=== PATIENT | male | born 1950 | race Two or more races ===

== ENCOUNTER 2016-10-01 14:01 | Inpatient (IN) | payer MEDICAID ==
[~2016-10-01] VITALS: Ht 170.2 cm; Wt 68.5 kg
[2016-10-01 14:41] LABS: HEMATOCRIT. 32.1 % (42.0-52.0); HEMOGLOBIN. 10.4 g/dL (14.0-18.0); MEAN CORPUSCULAR HEMOGLOBIN 27.4 pg (28.0-32.0); MEAN CORPUSCULAR HGB CONC 32.3 g/dL (31.0-37.0); MEAN CORPUSCULAR VOLUME 84.8 fL (80.0-94.0); PLATELET 309 x1000/uL (130-400); RED BLOOD CELL COUNT 3.79 mill/uL (4.7-6.1); RED CELL DISTRIBUTION WIDTH 14.8 % (11.6-14.6); WHITE BLOOD COUNT 17.9 x1000/uL (4.5-11.0)
[2016-10-01 14:42] LABS: DIFFERENTIAL COMMENT 1
[2016-10-01 14:46] LABS: INR 1.1; PROTHROMBIN TIME 11.4 sec
[2016-10-01 14:53] LABS: ALANINE AMINOTRANSFERASE 14 IU/L (13-61); ALBUMIN 2.7 g/dL (3.4-5.0); ANION GAP 12; CALCIUM 9.7 mg/dL (8.5-10.1); CARBON DIOXIDE 29 mEq/L (21-32); CHLORIDE 102 mEq/L (98-107); INDEX HEMOLYSI 1 (1-3); INDEX ICTERIC 1 (1-4); INDEX LIPEMIC 1 (1-3); NT PRO B-TYPE NATRIURETIC PEP 547 pg/mL (5-125); TROPONIN I < 0.02 ng/mL (0.00-0.04); UREA NITROGEN BLOOD 33 mg/dL (7-21); eGFR 56 mL/min (>60)
[2016-10-01 15:57] LABS: ANISOCYTOSIS 1+; PLATELET ESTIMATE NORMAL
[2016-10-01] MEDS ORDERED: PANTOPRAZOLE SODIUM 40 MG/VIAL IV ONE (16:00)
[2016-10-02] MEDS ORDERED: DEXT 5%/0.45% NACL 1000ML 1,000 ML IV SCH (13:17)
[2016-10-02] MEDS ORDERED: CLONIDINE 0.1MG TABLET PO PRN (13:30)
[2016-10-02] MEDS ORDERED: ACETAMINOPHEN 325MG TABLET PO PRN (13:30)
[2016-10-02] MEDS ORDERED: ONDANSETRON HCL 4MG/2ML VIAL IV PRN (13:30)
[2016-10-02] MEDS: PANTOPRAZOLE SODIUM 40 MG/VIAL IV SCH (15:57)
[2016-10-02 17:52] VITALS: BP 120/78
[2016-10-02 18:03] VITALS: BP 120/78
[2016-10-02] MEDS ORDERED: CLON0.1T PEG (18:38)
[2016-10-02] MEDS ORDERED: PROT40 PEG (18:38)
[2016-10-02] MEDS ORDERED: LOV40 SQ (18:38)
[2016-10-02] MEDS ORDERED: ACETAMINOPHEN 650MG SUPP PR PRN (19:00)
[2016-10-02 20:00] VITALS: BP_SYST 128; BP_SYST 149; BP_DIAS 123; BP_DIAS 82
[2016-10-02] MEDS: LORAZEPAM 2MG/ML CPJ IV PRN (21:42)
[2016-10-02 22:00] VITALS: BP 111/67
[2016-10-03] VITALS (11 sets, daily range): BP systolic 93–141; BP diastolic 36–79
[2016-10-03 07:22] LABS: BASOPHILS % 0.3 % (0.0-2.0); EOSINOPHILS % 0.1 % (0.0-5.0); HEMATOCRIT. 28.9 % (42.0-52.0); HEMOGLOBIN. 9.6 g/dL (14.0-18.0); LYMPHOCYTES % 11.4 % (20.0-50.0); MEAN CORPUSCULAR HEMOGLOBIN 28.1 pg (28.0-32.0); MEAN CORPUSCULAR HGB CONC 33.1 g/dL (31.0-37.0); MEAN CORPUSCULAR VOLUME 84.7 fL (80.0-94.0); MEAN PLATELET VOLUME 9.2 fl (7.4-10.4); MONOCYTES % 6.8 % (2.0-8.0); NEUTROPHILS % 81.4 % (40.0-76.0); PLATELET 261 x1000/uL (130-400); RED BLOOD CELL COUNT 3.41 mill/uL (4.7-6.1); RED CELL DISTRIBUTION WIDTH 14.6 % (11.6-14.6); WHITE BLOOD COUNT 10.4 x1000/uL (4.5-11.0)
[2016-10-03 07:40] LABS: ALANINE AMINOTRANSFERASE 13 IU/L (13-61); ALBUMIN 2.4 g/dL (3.4-5.0); ANION GAP 13; CALCIUM 9.2 mg/dL (8.5-10.1); CARBON DIOXIDE 27 mEq/L (21-32); CHLORIDE 107 mEq/L (98-107); INDEX HEMOLYSI 4 (1-3); INDEX ICTERIC 1 (1-4); INDEX LIPEMIC 1 (1-3); UREA NITROGEN BLOOD 28 mg/dL (7-21); eGFR 52 mL/min (>60)
[2016-10-03] MEDS: PANTOPRAZOLE SODIUM 40 MG/VIAL IV SCH (08:02)
[2016-10-03] MEDS ORDERED: CHLORPROMAZINE HCL 25MG/1ML AMP IM SCH (10:00)
[2016-10-03] MEDS ORDERED: SODIUM CHLORIDE 0.45% 1,000 ML IV SCH (18:15)
[2016-10-03] MEDS: LORAZEPAM 2MG/ML CPJ IV PRN (18:51)
[2016-10-04] VITALS (17 sets, daily range): BP systolic 95–133; BP diastolic 54–92
[2016-10-04 06:36] LABS: BASOPHILS % 0.6 % (0.0-2.0); EOSINOPHILS % 1.4 % (0.0-5.0); HEMATOCRIT. 28.7 % (42.0-52.0); HEMOGLOBIN. 9.4 g/dL (14.0-18.0); LYMPHOCYTES % 27.1 % (20.0-50.0); MEAN CORPUSCULAR HGB CONC 32.7 g/dL (31.0-37.0); MEAN CORPUSCULAR VOLUME 85.7 fL (80.0-94.0); MEAN PLATELET VOLUME 8.7 fl (7.4-10.4); MONOCYTES % 12.4 % (2.0-8.0); NEUTROPHILS % 58.5 % (40.0-76.0); PLATELET 250 x1000/uL (130-400); RED BLOOD CELL COUNT 3.36 mill/uL (4.7-6.1); RED CELL DISTRIBUTION WIDTH 14.5 % (11.6-14.6)
[2016-10-04 07:05] LABS: ALANINE AMINOTRANSFERASE 15 IU/L (13-61); ALBUMIN 2.4 g/dL (3.4-5.0); ANION GAP 11; CARBON DIOXIDE 27 mEq/L (21-32); CHLORIDE 108 mEq/L (98-107); INDEX HEMOLYSI 1 (1-3); INDEX ICTERIC 1 (1-4); INDEX LIPEMIC 1 (1-3); UREA NITROGEN BLOOD 24 mg/dL (7-21); eGFR 49 mL/min (>60)
[2016-10-04] MEDS: PANTOPRAZOLE SODIUM 40 MG/VIAL IV SCH (08:29)
[2016-10-05] VITALS (8 sets, daily range): BP systolic 107–120; BP diastolic 31–75
[2016-10-05] MEDS: PANTOPRAZOLE SODIUM 40 MG/VIAL IV SCH (09:23)
[2016-11-05] MEDS ORDERED: VITAMIN C PEG (09:58)
[2016-11-05] MEDS ORDERED: METO-293 PEG (09:58)
[2016-11-05] MEDS ORDERED: ONDA4TAB5 PO (09:58)
[2016-11-05] MEDS ORDERED: ACET-2178 PEG (09:58)
[2016-11-05] MEDS ORDERED: HYDR-523 PO (09:58)
[2016-11-05] MEDS ORDERED: MULTIVIT W/MINERALS PEG (09:58)
== END 2016-10-05 10:20 | DRG 253 ==
LOC: ER 14:12 → OBSVTOIN 10-02 15:58 → 5EST 10-02 15:58 → INTOOBSV 10-02 15:58
PROVIDERS: ADMIT Internal Medicine; ATTEND Internal Medicine
PROC: 02HV33Z Insertion of Infusion Device into Superior Vena Cava, Percutaneous Approach (ICD-10-PCS; principal; 2016-10-02)
PROC: B548ZZA Ultrasonography of Superior Vena Cava, Guidance (ICD-10-PCS; 2016-10-02)
DX: K92.2 Gastrointestinal hemorrhage, unspecified (principal); N17.9 Acute kidney failure, unspecified; G93.40 Encephalopathy, unspecified; Z99.11 Dependence on respirator [ventilator] status; G82.20 Paraplegia, unspecified; E11.9 Type 2 diabetes mellitus without complications; I10 Essential (primary) hypertension; D64.9 Anemia, unspecified; Z93.2 Ileostomy status; Z93.3 Colostomy status
CPT/HCPCS: 36415; 36569; 70450; 71010; 74176; 76937; 80053; 82270; 82962; 83880; 84484; 85025; 85610; 93005; 93970; 94002; 94003; 94640; 96374; 96375; 96376; 99285; A6261; C1725; C9113; G0378; J2060; J3230

== ENCOUNTER 2018-01-09 06:07 | Inpatient (IN) | payer MEDICAID, MEDICARE ==
[~2018-01-09] VITALS: Ht 172.7 cm; Wt 66.3 kg
[~2018-01-09 06:07] MED LIST: ACET-2178 PEG; CLON0.1T PEG; METO-293 PO; ONDA4TAB5 PO; POTA10TA15 PEG; SUCR1ORA PO; [UNRECOGNIZED DRUG - OTHER] PEG
[2018-01-09] MEDS ORDERED: SODIUM CHLORIDE 0.9% 1,000 ML IV ONE (06:18)
[2018-01-09] MEDS ORDERED: PANTOPRAZOLE 80 MG in SODIUM CHLORIDE 0.9% 100 ML IV STA (06:18)
[2018-01-09 07:23] LABS: HEMATOCRIT. 38.9 % (42.0-52.0); HEMOGLOBIN. 12.5 g/dL (14.0-18.0); MEAN CORPUSCULAR HEMOGLOBIN 25.1 pg (28.0-32.0); MEAN PLATELET VOLUME 8.4 fl (7.4-10.4); PLATELET 247 x1000/uL (130-400); RED BLOOD CELL COUNT 4.98 mill/uL (4.7-6.1)
[2018-01-09 07:28] LABS: CHLORIDE 104 mEq/L (98-107)
[2018-01-09 07:30] LABS: INR 1.1; PROTHROMBIN TIME 11.5 sec (9.4-11.6)
[2018-01-09 07:53] LABS: PLATELET ESTIMATE NORMAL
[2018-01-09 11:50] VITALS: BP 118/77
[2018-01-09] MEDS ORDERED: IPRATROPIUM/ALBUTEROL 0.5-3(2.5)MG/3ML NEB INH PRN (12:30)
[2018-01-09] MEDS ORDERED: LORAZEPAM 2MG/ML CPJ IV PRN (12:30)
[2018-01-09] MEDS ORDERED: ONDANSETRON HCL 4MG/2ML VIAL IV PRN (12:30)
[2018-01-09 13:35] LABS: HEMATOCRIT 37.8 % (42.0-52.0); HEMOGLOBIN 12.2 g/dL (14.0-18.0)
[2018-01-09] MEDS: DEXT 5%/0.45% NACL 1000ML 1,000 ML IV SCH ×2 (13:45→23:19)
[2018-01-09] MEDS: SUCRALFATE 1 G/10 ML UDC GT SCH ×2 (13:46→17:30)
[2018-01-09 14:00] VITALS: BP 119/78
[2018-01-09 16:00] VITALS: BP 120/68
[2018-01-09 16:26] LABS: BG BASE EXCESS -2.8 mmol/L (-2.0-2.0); BG CARBOXYHEMOGLOBIN 0.3 % (0.5-1.5); BG DEOXYHEMOGLOBIN 0.6 % (0.0-5.0); BG FRACTION INSPIRED OXYGEN 50; BG HCO3 ACT 21.7 mmol/L (22.0-26.0); BG METHEMOGLOBIN 0.3 % (0.0-1.5); BG OXYGEN SATURATION 99.4 % (92.0-98.5); BG OXYHEMOGLOBIN 98.8 % (94.0-97.0); BG PCO2 36.6 mmHg (35.0-45.0); BG PH 7.391 (7.350-7.450); BG PO2 234.3 mmHg (75.0-100.0); BG SAMPLE SITE LEFT RADIAL; BG TIDAL VOLUME(mL) 500 mL; BG TOTAL HEMOGLOBIN 12.2 g/dL (12.0-18.0); BG VENT MODE VENT - A/C; BG VENT RATE 16 set
[2018-01-09 18:00] VITALS: BP 125/77
[2018-01-09 20:00] VITALS: BP 107/72
[2018-01-09] MEDS: IPRATROPIUM/ALBUTEROL 0.5-3(2.5)MG/3ML NEB HHN SCH (20:36)
[2018-01-09] MEDS ORDERED: CRAN425C6 GT (20:43)
[2018-01-09] MEDS ORDERED: MULT-1146 (20:43)
[2018-01-09] MEDS ORDERED: ALBU2.5V13 HHN ×2 (20:43)
[2018-01-09] MEDS ORDERED: GABA-533 GT (20:43)
[2018-01-09] MEDS ORDERED: FE300LUD GT (20:43)
[2018-01-09] MEDS ORDERED: HYDR15SO5 PO (20:43)
[2018-01-09] MEDS ORDERED: FAMO20TA8 (20:43)
[2018-01-09 22:00] VITALS: BP 117/72
[2018-01-09 22:31] LABS: CLARITY URINE CLOUDY (CLEAR); COLOR URINE YELLOW (YELLOW); KETONES URINE NEGATIVE (NEGATIVE); LEUKOCYTE ESTERASE URINE 3+ (NEGATIVE); NITRITE URINE NEGATIVE (NEGATIVE); OCCULT BLOOD URINE 1+ (NEGATIVE); PH URINE 5.5 (4.5-8.0); PROTEIN URINE TRACE (NEGATIVE); SPECIFIC GRAVITY URINE 1.018 (1.005-1.030); UROBILINOGEN URINE 0.2 E.U./dL (0.2-1.0)
[2018-01-10] VITALS (7 sets, daily range): BP systolic 111–130; BP diastolic 59–77
[2018-01-10] MEDS: IPRATROPIUM/ALBUTEROL 0.5-3(2.5)MG/3ML NEB HHN SCH ×4 (02:00→20:15)
[2018-01-10 06:39] LABS: BASOPHILS % 0.4 % (0.0-2.0); EOSINOPHILS % 0.1 % (0.0-5.0); HEMATOCRIT. 33.4 % (42.0-52.0); HEMOGLOBIN. 10.4 g/dL (14.0-18.0); LYMPHOCYTES % 14.7 % (20.0-50.0); MEAN CORPUSCULAR HEMOGLOBIN 24.7 pg (28.0-32.0); MEAN CORPUSCULAR VOLUME 79.1 fL (80.0-94.0); MEAN PLATELET VOLUME 8.6 fl (7.4-10.4); MONOCYTES % 10.2 % (2.0-8.0); NEUTROPHILS % 74.6 % (40.0-76.0); PLATELET 214 x1000/uL (130-400); RED BLOOD CELL COUNT 4.22 mill/uL (4.7-6.1); RED CELL DISTRIBUTION WIDTH 16.7 % (11.6-14.6)
[2018-01-10] MEDS: DEXT 5%/0.45% NACL 1000ML 1,000 ML IV SCH ×2 (08:57→18:08)
[2018-01-10] MEDS: PANTOPRAZOLE SODIUM 40 MG/VIAL IV SCH (09:47)
[2018-01-10] MEDS: SUCRALFATE 1 G/10 ML UDC GT SCH ×3 (09:48→18:32)
[2018-01-10] MEDS: ACETAMINOPHEN 325MG TABLET GT PRN (12:51)
[2018-01-10] MEDS ORDERED: LACTULOSE 20G/30ML UDC PO NR (14:45)
[2018-01-10 16:31] LABS: TOTAL IRON BINDING CAPACITY 246 ug/dL (250-450)
[2018-01-10 16:49] LABS: FOLIC ACID (FOLATE) SERUM >20 ng/mL ng/mL (>5.38)
[2018-01-10 17:00] LABS: VITAMIN B12 SERUM 1964 pg/mL (211-911)
[2018-01-10 17:01] LABS: FERRITIN 167 ng/mL (22-322)
[2018-01-10] MEDS: LEVOFLOXACIN 250MG TABLET PO SCH (18:32)
[2018-01-11] VITALS (8 sets, daily range): BP systolic 116–144; BP diastolic 67–87
[2018-01-11] MEDS: IPRATROPIUM/ALBUTEROL 0.5-3(2.5)MG/3ML NEB HHN SCH ×4 (02:15→19:53)
[2018-01-11] MEDS: DEXT 5%/0.45% NACL 1000ML 1,000 ML IV SCH ×2 (04:30→10:48)
[2018-01-11 07:10] LABS: HEMATOCRIT 32.2 % (42.0-52.0); HEMOGLOBIN 10.2 g/dL (14.0-18.0); MEAN CORPUSCULAR HEMOGLOBIN 24.9 pg (28.0-32.0); MEAN CORPUSCULAR VOLUME 78.5 fL (80.0-94.0); PLATELET 211 x1000/uL (130-400)
[2018-01-11] MEDS: PANTOPRAZOLE SODIUM 40 MG/VIAL IV SCH (10:49)
[2018-01-11] MEDS: SUCRALFATE 1 G/10 ML UDC GT SCH ×2 (10:49→13:07)
[2018-01-11] MEDS: ACETAMINOPHEN 325MG TABLET GT PRN (10:53)
[2018-01-12] VITALS (10 sets, daily range): BP systolic 110–146; BP diastolic 62–83
[2018-01-12] MEDS: DEXT 5%/0.45% NACL 1000ML 1,000 ML IV SCH (00:30)
[2018-01-12] MEDS: IPRATROPIUM/ALBUTEROL 0.5-3(2.5)MG/3ML NEB HHN SCH ×4 (01:50→20:05)
[2018-01-12 07:26] LABS: CHLORIDE 115 mEq/L (98-107)
[2018-01-12 07:33] LABS: HEMATOCRIT 30.3 % (42.0-52.0); HEMOGLOBIN 9.6 g/dL (14.0-18.0); MEAN CORPUSCULAR VOLUME 78.9 fL (80.0-94.0); PLATELET 207 x1000/uL (130-400); RED BLOOD CELL COUNT 3.84 mill/uL (4.7-6.1); RED CELL DISTRIBUTION WIDTH 17.1 % (11.6-14.6)
[2018-01-12] MEDS: PANTOPRAZOLE SODIUM 40 MG/VIAL IV SCH (08:24)
[2018-01-12] MEDS: LEVOFLOXACIN 250MG TABLET PO SCH (11:38)
[2018-01-12] MEDS: SUCRALFATE 1 G/10 ML UDC GT SCH (11:38)
[2018-01-12 13:34] LABS: INR 1.2; PARTIAL THROMBOPLASTIN TIME 28.2 sec (23.4-31.0); PROTHROMBIN TIME 12.2 sec (9.4-11.6)
[2018-01-12] MEDS ORDERED: FENTANYL CITRATE/PF 50MCG/ML 2ML VIAL ONE (14:43)
[2018-01-12] MEDS ORDERED: MIDAZOLAM HCL 5 MG/5 ML VIAL ONE (14:44)
[2018-01-12] MEDS ORDERED: MIDAZOLAM HCL 5 MG/5 ML VIAL IV PRN (15:08)
[2018-01-12] MEDS ORDERED: FLUCONAZOLE 200 MG/100ML BAG 100 ML IV SCH (16:00)
[2018-01-12] MEDS: HYDROCODONE/ACETAMINOPHEN 5/325MG TABLET GT PRN (21:25)
[2018-01-12 23:15] LABS: HEMATOCRIT 31.2 % (42.0-52.0)
[2018-01-13] VITALS (16 sets, daily range): BP systolic 107–136; BP diastolic 55–89
[2018-01-13] MEDS: IPRATROPIUM/ALBUTEROL 0.5-3(2.5)MG/3ML NEB HHN SCH ×4 (01:51→20:16)
[2018-01-13 07:03] LABS: HEMATOCRIT 29.4 % (42.0-52.0); HEMOGLOBIN 9.7 g/dL (14.0-18.0); MEAN CORPUSCULAR HEMOGLOBIN 25.7 pg (28.0-32.0); MEAN CORPUSCULAR VOLUME 78.1 fL (80.0-94.0); PLATELET 218 x1000/uL (130-400); RED BLOOD CELL COUNT 3.76 mill/uL (4.7-6.1); RED CELL DISTRIBUTION WIDTH 16.6 % (11.6-14.6)
[2018-01-13] MEDS ORDERED: OMEPRAZOLE 20MG CAPSULE EXTENDED RELEASE PO SCH (07:30)
[2018-01-13 07:56] LABS: CHLORIDE 114 mEq/L (98-107)
[2018-01-13] MEDS ORDERED: FLUCONAZOLE 200MG TABLET PO SCH (17:00)
[2018-01-13] MEDS: HYDROCODONE/ACETAMINOPHEN 5/325MG TABLET GT PRN (22:50)
== END 2018-01-13 23:47 | DRG 720 ==
LOC: ER 06:07 → 5EST 09:51 → EDBEDREQSVC 09:53 → EDBEDREQ 09:53 → EDBEDREQSVC 10:24 → ENRESERV 10:28
PROVIDERS: ADMIT Internal Medicine; ATTEND Internal Medicine
PROC: 5A1955Z Respiratory Ventilation, Greater than 96 Consecutive Hours (ICD-10-PCS; principal; 2018-01-09)
PROC: 0DH63UZ Insertion of Feeding Device into Stomach, Percutaneous Approach (ICD-10-PCS; 2018-01-12)
PROC: 0DJ08ZZ Inspection of Upper Intestinal Tract, Via Natural or Artificial Opening Endoscopic (ICD-10-PCS; 2018-01-12)
PROC: 0DP6XUZ Removal of Feeding Device from Stomach, External Approach (ICD-10-PCS; 2018-01-12)
DX: A41.9 Sepsis, unspecified organism (principal); N17.0 Acute kidney failure with tubular necrosis; J69.0 Pneumonitis due to inhalation of food and vomit; G93.1 Anoxic brain damage, not elsewhere classified; K22.11 Ulcer of esophagus with bleeding; Z99.11 Dependence on respirator [ventilator] status; J96.10 Chronic respiratory failure, unspecified whether with hypoxia or hypercapnia; K92.0 Hematemesis; K27.4 Chronic or unspecified peptic ulcer, site unspecified, with hemorrhage; K94.23 Gastrostomy malfunction; E46 Unspecified protein-calorie malnutrition; E11.22 Type 2 diabetes mellitus with diabetic chronic kidney disease; Z93.0 Tracheostomy status; N18.2 Chronic kidney disease, stage 2 (mild); N39.0 Urinary tract infection, site not specified; I12.9 Hypertensive chronic kidney disease with stage 1 through stage 4 chronic kidney disease, or unspecified chronic kidney disease; G89.29 Other chronic pain; D50.9 Iron deficiency anemia, unspecified; K44.9 Diaphragmatic hernia without obstruction or gangrene; K29.60 Other gastritis without bleeding; D63.8 Anemia in other chronic diseases classified elsewhere; E86.0 Dehydration; F03.90 Unspecified dementia, unspecified severity, without behavioral disturbance, psychotic disturbance, mood disturbance, and anxiety; F41.9 Anxiety disorder, unspecified; M19.90 Unspecified osteoarthritis, unspecified site; Z79.899 Other long term (current) drug therapy; Z86.718 Personal history of other venous thrombosis and embolism; Z93.3 Colostomy status; Z87.19 Personal history of other diseases of the digestive system; Z86.73 Personal history of transient ischemic attack (TIA), and cerebral infarction without residual deficits; Z68.22 Body mass index [BMI] 22.0-22.9, adult; K29.71 Gastritis, unspecified, with bleeding
CPT/HCPCS: 36415; 36600; 71045; 80048; 80053; 81003; 82375; 82607; 82728; 82746; 82805; 83540; 83550; 83690; 84484; 85014; 85018; 85025; 85027; 85610; 85730; 86850; 86900; 87040; 87086; 87106; 94002; 94003; 94640; 96365; 96375; 99285; A6261; C1893; C9113; J1450; J2250; J3010; J3490; J7030; J7050; J7620; A4315